=== PATIENT | male | born 1940 | race Caucasian/White ===

== ENCOUNTER 2023-09-08 18:49 | Day surgery (SDC) | payer MEDICARE ==
--- NOTE | 2023-09-08 19:34 | ED Physician Documentation ---
History of Present Illness - Stated complaint Stated Complaint: - Chief complaint Chief Complaint: Abd Pain - History obtained from History obtained from: Patient, Family () - History of Present Illness Timing: Today Pain level max: 0 Pain level now: 0 - Additonal information Additional information: Patient with a history of BPH and urinary retention. Has been on flomax for 2 weeks and has had a catheter in the past. States flew in from [place] today and having trouble urinating. Also had a bloody bowel movement today x1. BRBPR. No abd pain. No fevers. No antibiotic use. States had a colonoscopy in [place] a few years ago which was reportedly normal. Review of Systems Constitutional: denies: Fever, Chills Respiratory: denies: Dyspnea, Cough GI: reports: Bloody / black stool (x1). denies: Nausea, Vomiting, Diarrhea, Hematemesis : denies: Dysuria, Frequency, Hesitancy Skin: denies: Rash Musculoskeletal: denies: Neck pain, Back pain Neurologic: denies: Headache PD PAST MEDICAL HISTORY - Past Medical History Past Medical History: Yes Cardiovascular: Hypertension HEENT: Glaucoma - Past Surgical History Past Surgical History: Yes - Allergies Allergies/Adverse Reactions: Allergies Allergy/AdvReac Type Severity Reaction Status Date / Time No Known Drug Allergies Allergy Verified 09/08/23 19:04 - Social History Does the pt smoke?: No Smoking Status: Never smoker Does the pt drink ETOH?: No Does the pt have substance abuse?: No - Immunizations Immunizations are current?: No PD ED PE NORMAL - Vitals Vital signs reviewed: Yes - General General: Alert and oriented X 3, No acute distress - HEENT HEENT: Moist mucous membranes - Cardiac Cardiac: RRR, Strong equal pulses - Respiratory Respiratory: No respiratory distress, Clear bilaterally - Abdomen Abdomen: Soft, Non tender, Non distended - Male Male : Other (Small amount of bright red blood in the rectal vault.) - Back Back: No CVA TTP, No spinal TTP - Derm Derm: Warm and dry - Neuro Neuro: Alert and oriented X 3 - Psych Psych: Normal mood, Normal affect Results - Vitals Vitals: Vital Signs - 24 hr 09/08/23 09/08/23 18:59 22:59 Temperature 36.9 C 36.2 C L Heart Rate 72 Heart Rate [ 60 Radial] Respiratory 16 12 Rate Blood Pressure 199/63 H Blood Pressure 118/56 L [Left Brachial artery] O2 Saturation 100 98 Oxygen O2 Source Room air - Labs Labs: Laboratory Tests 09/08/23 09/08/23 09/08/23 19:36 19:36 19:36 WBC 11.0 H RBC 4.50 L Hgb 13.2 L Hct 42.5 MCV 94.4 H MCH 29.3 MCHC 31.1 L RDW 14.4 Plt Count 216 MPV 11.8 H Neut # (Auto) 8.9 H Lymph # (Auto) 1.0 L Bon[place] # (Auto) 1.0 Eos # (Auto) 0.0 Baso # (Auto) 0.0 Absolute Nucleated RBC 0.00 Nucleated RBC % 0.0 PT 12.0 INR 1.1 APTT 27.5 Sodium 139 Potassium 3.9 Chloride 104 Carbon Dioxide 27 Anion Gap 8.0 BUN 17 Creatinine 1.0 Estimated GFR (MDRD) 71 L Glucose 123 H Calcium 9.5 Total Bilirubin 1.1 H AST 19 ALT 8 L Alkaline Phosphatase 67 Total Protein 6.8 Albumin 4.4 Globulin 2.4 Albumin/Globulin Ratio 1.8 Lipase 13 Blood Type 09/08/23 19:36 WBC RBC Hgb Hct MCV MCH MCHC RDW Plt Count MPV Neut # (Auto) Lymph # (Auto) [place] # (Auto) Eos # (Auto) Baso # (Auto) Absolute Nucleated RBC Nucleated RBC % PT INR APTT Sodium Potassium Chloride Carbon Dioxide Anion Gap BUN Creatinine Estimated GFR (MDRD) Glucose Calcium Total Bilirubin AST ALT Alkaline Phosphatase Total Protein Albumin Globulin Albumin/Globulin Ratio Lipase Blood Type A POSITIVE PD Medical Decision Making - ED course Complexity details: reviewed results, re-evaluated patient, considered differential, d/w patient, d/w seo consultant ED course: 83-year-old male visiting from [place]. Had bright red blood per rectum x 1 today. No further rectal bleeding. Not on blood thinners. Normal hemoglobin hematocrit. Abdomen is soft, nontender nondistended. He did have urinary retention and a Nuñez catheter was attempted to be placed but was unable to be placed successfully. Attempted multiple times. Discussed with Dr. Black, urology, he came and attempted to place a Nuñez catheter as well but was unable to place the catheter. He will take the patient to the OR for catheter placement. The hematochezia is stable, the patient can return if he worsens further hematochezia or follow-up with his PCP when he returns home. He is hemodynamically stable. Would still recommend a CT scan. Patient transferred to the OR. This document was made in part using voice recognition software. While efforts are made to proofread this document, sound alike and grammatical errors may occur. Departure - Departure Disposition: ED Transfer to [facility] Clinical Impression: Urinary retention, Hematochezia, BRBPR (bright red blood per rectum) Condition: Stable Discharge Date/Time: 09/08/23 22:00
[2023-09-08 19:43] LABS: BASOPHILS % (AUTO) 0.3 %; HCT - HEMATOCRIT 42.5 % (42.0-52.0); HGB - HEMOGLOBIN 13.2 g/dL (14.0-18.0); LYMPHOCYTES % (AUTO) 8.9 %; MEAN CORPUSCULAR HEMOGLOBIN 29.3 pg (27.0-31.0); MEAN CORPUSCULAR HGB CONC 31.1 g/dL (32.0-36.0); MEAN CORPUSCULAR VOLUME 94.4 fL (80.0-94.0); MEAN PLATELET VOLUME 11.8 fL (7.4-11.4); MONOCYTES % (AUTO) 9.5 %; NEUTROPHILS # (AUTO) 8.9 10^3/uL (1.5-6.6); NEUTROPHILS % (AUTO) 81.1 %; PLT - PLATELET COUNT 216 10^3/uL (130-450); RED CELL DISTRIBUTION WIDTH 14.4 % (12.0-15.0)
[2023-09-08 19:53] LABS: PARTIAL THROMBOPLASTIN TIME 27.5 secs (24.9-33.3)
[2023-09-08 19:57] LABS: INR 1.1 (0.8-1.2)
[2023-09-08 20:00] LABS: ALBUMIN 4.4 g/dL (3.2-5.5); ALBUMIN/GLOBULIN RATIO 1.8 (1.0-2.2); BILIRUBIN,TOTAL 1.1 mg/dL (0.2-1.0); CALCIUM 9.5 mg/dL (8.5-10.3); POTASSIUM 3.9 mmol/L (3.5-4.5); TOTAL PROTEIN 6.8 g/dL (6.4-8.9)
[2023-09-08] MEDS ORDERED: LIDOCAINE 2% URO-JET 5 ML SYRINGE UR STA (21:19)
--- NOTE | 2023-09-08 22:00 | CONSULTATION NOTE ---
Referring Provider Name of Referring Provider:: Dr Carpenter Consult Date: 09/08/23 Chief Complaint - Chief Complaint Chief Complaint: Urinary Retention History of Present Illness - Admitted From Admitted From:: Currently in the ER - History Obtained From Records Reviewed: Local records History obtained from: Patient, Exam Limitations: Patient is poor historian, most from - History of Present Illness HPI Comment/Other: Ja is an 83yo M with history of urinary retention about 3 years ago which required a catheter for about 6 months. He was eventually able to void, and the family is unsure if he was on a medication at the time for this, perhaps t amsulosin. He eventually stopped seeing the urologist, and had not been on any prostate meds for years. Two weeks ago he noted some hesitancy of urination in the morning and his PCP started him on tamsulosin. He lives in [place] and has most of his care there. He and his flew here today and noted he could not urinate, though with straining he did have bowel movements and saw bright red blood at least once. Notes state he had a negative colonoscopy 3 years ago. In the ER at [facility] the staff tried multiple catheters, 12f, 14f,16f mostly coude catheters. They noted blood in catheter on the last try and so Urology was consulted. He is a poor historian, though is able to answer pointed questions well. History - Past Medical History Cardiovascular: reports: Hypertension HEENT: reports: Glaucoma - Past Surgical History General: reports: Cholecystectomy (per no issues) Meds/Allgy - Allergies Allergies/Adverse Reactions: Allergies Allergy/AdvReac Type Severity Reaction Status Date / Time No Known Drug Allergies Allergy Verified 09/08/23 19:04 Exam - Vital Signs Vital Signs: Vital Signs x48h Temp Pulse Resp BP Pulse Ox 09/08/23 18:59 36.9 C 72 16 199/63 H 100 - Physical Exam General Appearance: positive: No acute distress Respiratory: positive: Breath sounds nml Cardiovascular: positive: Regular rate & rhythm Abdomen: positive: Other (palpable lower abdominal fullness consistent with distended bladder) Conclusion and Plan - Lab Results Laboratory Results 09/08/23 19:36: Blood Type A POSITIVE 09/08/23 19:36: Sodium 139, Potassium 3.9, Chloride 104, Carbon Dioxide 27, Anion Gap 8.0, BUN 17, Creatinine 1.0, Estimated GFR (MDRD) 71 L, Glucose 123 H, Calcium 9.5, Total Bilirubin 1.1 H, AST 19, ALT 8 L, Alkaline Phosphatase 67, Total Protein 6.8, Albumin 4.4, Globulin 2.4, Albumin/Globulin Ratio 1.8, Lipase 13 09/08/23 19:36: PT 12.0, INR 1.1, APTT 27.5 09/08/23 19:36: WBC 11.0 H, RBC 4.50 L, Hgb 13.2 L, Hct 42.5, MCV 94.4 H, MCH 29.3, MCHC 31.1 L, RDW 14.4, Plt Count 216, MPV 11.8 H, Neut # (Auto) 8.9 H, Lymph # (Auto) 1.0 L, [place] # (Auto) 1.0, Eos # (Auto) 0.0, Baso # (Auto) 0.0, Absolute Nucleated RBC 0.00, Nucleated RBC % 0.0 - Diagnosis Diagnosis: Urinary retention - Consultation Note Consultation Note: 83yo M with likely hx of BPH and retention in the past, now with urinary retention and unable to pass catheter I tried to pass an 18f coude catheter at bedside, but met resistance which I suspect related to false passage Patient NPO since this morning - Plan Plan: Unable to place catheter at bedside. Patient is clinically stable but uncomfortable. I recommend a: cystoscopy, possible catheter placement, possible suprapubic tube in the OR under sedation. We discussed the risks/benefits/alternatives. Specific risk of infection, bleeding, need for additional procedures, pain, dislodgment of catheter, need for chronic catheter, anesthesia risks including: heart attack, stroke, MSK injuries, pulmonary embolism/DVT were discussed. Patient and state full understanding and consent. The signed the form as she is POA. Hopefully home later tonight with followup in [place] with their urologist there. Given BRBPR and atypical presentation, it isn't unreasonable to obtain a CT scan and so I will await these results as well Will send urine sample from OR as well
[2023-09-08] MEDS ORDERED: PROPOFOL 500 MG/50 ML 500 MG/50 ML VIAL ONE (22:11)
[2023-09-08] MEDS ORDERED: fentaNYL 100 MCG/2 ML VIAL ONE (22:12)
[2023-09-08] MEDS ORDERED: LIDOCAINE 2% URO-JET 5 ML SYRINGE UR ONE ×2 (22:18→22:51)
--- NOTE | 2023-09-08 22:23 | ANESTHESIA ---
Pre-Anesthesia VS, & Labs - Diagnosis Diagnosis Urinary retention - Procedure cooney placement under anesthesia, cystoscopy Vital Signs: Temp Pulse Resp BP Pulse Ox O2 Flow Rate 36.9 C 72 16 199/63 H 100 09/08/23 18:59 09/08/23 18:59 09/08/23 18:59 09/08/23 18:59 09/08/23 18:59 Height: 5 ft 9 in Weight (kg): 88.451 kg Body Mass Index: 28.8 BMI Classification: Overweight - NPO >8 hours - Lab Results Current Lab Results: Laboratory Tests 09/08/23 19:36: Blood Type A POSITIVE 09/08/23 19:36: Sodium 139, Potassium 3.9, Chloride 104, Carbon Dioxide 27, Anion Gap 8.0, BUN 17, Creatinine 1.0, Estimated GFR (MDRD) 71 L, Glucose 123 H, Calcium 9.5, Total Bilirubin 1.1 H, AST 19, ALT 8 L, Alkaline Phosphatase 67, Total Protein 6.8, Albumin 4.4, Globulin 2.4, Albumin/Globulin Ratio 1.8, Lipase 13 09/08/23 19:36: PT 12.0, INR 1.1, APTT 27.5 09/08/23 19:36: WBC 11.0 H, RBC 4.50 L, Hgb 13.2 L, Hct 42.5, MCV 94.4 H, MCH 29.3, MCHC 31.1 L, RDW 14.4, Plt Count 216, MPV 11.8 H, Neut # (Auto) 8.9 H, Lymph # (Auto) 1.0 L, [place] # (Auto) 1.0, Eos # (Auto) 0.0, Baso # (Auto) 0.0, Absolute Nucleated RBC 0.00, Nucleated RBC % 0.0 Fish Bones: 09/08/23 19:36 09/08/23 19:36 Home Medications and Allergies Allergies/Adverse Reactions: Allergies Allergy/AdvReac Type Severity Reaction Status Date / Time No Known Drug Allergies Allergy Verified 09/08/23 19:04 Anes History & Medical History - Anesthetic History Anesthesia Complications: reports: No previous complications Family history of Anesthesia Complications: Denies Family history of Malignant Hyperthermia: Denies - Medical History Cardiovascular: reports: Hypertension Musculoskeletal: reports: None Smoking Status: Never smoker Psychosocial: reports: No issues indicated History of Cancer?: No - Surgical History General: reports: Cholecystectomy (per no issues) Exam General: Alert, Oriented x3, Cooperative Dental: WNL Mouth Openin Fingerbreadth Neck Mobility: Normal Mallampati classification: II Respiratory: Lungs clear, Normal breath sounds Cardiovascular: Regular rate Neurological: Normal speech Mental/Cognitive Status: Normal for patient, Confused Cognitive Status: Dementia, Memory impairment Plan Anesthesia Type: MAC, Total IV Consent for Procedure(s) Verified and Reviewed: Yes Code Status: Attempt Resuscitation ASA classification: 2-Mild systemic disease Is this case an emergency?: Yes
[2023-09-08] MEDS ORDERED: MORPHINE 2 MG/ML CARPUJECT IVP PRN (22:24)
[2023-09-08] MEDS ORDERED: fentaNYL 100 MCG/2 ML VIAL IVP PRN (22:24)
[2023-09-08] MEDS ORDERED: METOCLOPRAMIDE 10 MG/2 ML VIAL IVP PRN (22:24)
[2023-09-08] MEDS ORDERED: NALOXONE 0.4 MG/ML VIAL IVP PRN (22:24)
[2023-09-08] MEDS ORDERED: ATROPINE ABBOJECT 1 MG/10 ML SYRINGE IVP PRN (22:24)
[2023-09-08] MEDS ORDERED: HYDROmorphone 0.5 MG/0.5 ML SYRINGE IVP PRN (22:24)
[2023-09-08] MEDS ORDERED: ONDANSETRON 4 MG/2 ML VIAL IVP PRN (22:24)
[2023-09-08] MEDS ORDERED: ePHEDrine 50 MG/ML VIAL IVP PRN (22:24)
[2023-09-08] MEDS ORDERED: ceFAZolin 1 GM VIAL ONE (22:41)
[2023-09-08] MEDS ORDERED: SODIUM CHLORIDE FLUSH 0.9% 10 ML SYRINGE IVP PRN (22:57)
[2023-09-08] MEDS ORDERED: ACETAMINOPHEN 325 MG TABLET PO PRN (22:57)
[2023-09-08] MEDS ORDERED: LACTATED RINGERS 1,000 ML IV SCH (23:00)
--- NOTE | 2023-09-08 23:03 | Discharge Plan ---
Discharge Plan Problem Reviewed?: Yes Disposition: Home, Self Care Diet: Regular Activity Restrictions: Additional Comments (routine catheter care) Shower Restrictions: No Driving Restrictions: No Instruction Topics: Catheter Bag Urinary Empty Clean, Catheter Indwelling Urinary Dc Additional Instructions or Follow Up instructions: You must followup with a urology doctor in your home city within one month If you are still here on [place] you can followup with Dr Black in 2-4 weeks Catheter must stay in place until you see a urology doctor No Smoking: If you smoke, Please STOP! Call for help.
--- NOTE | 2023-09-08 23:03 | OPERATIVE REPORT ---
Operative Report - General Procedure Date: 09/08/23 Planned Procedure: Cystoscopy, catheter placement, possible suprapubic tube Pre-Op Diagnosis: Urinary retention Procedure Performed: cystoscopy, complex cooney placement Post Op Diagnosis: Urinary retention, BPH, false passage - Procedure Note Primary Surgeon: Wayne Anesthesia Provider: PANDA gonzalez Anesthesia Technique: Moderate sedation Pathology: urine culture Estimated Blood Loss (mL): 0 Drain/Tube Type: Other (20f cooney kasaan) Findings: false passage very large prostate diverticula in bladder Complications: none - Other Other Information/Narrative: After informed consent was obtained by the patient and power of attorney general , the patient was brought to the OR and laid in the supine position. At that point and the patient was anesthetized per anesthesia protocols. He was placed in dorsolithotomy position and prepped and draped in usual sterile fashion. A timeout was performed reconfirming the patient and procedure. A flexible cystoscope was advanced past the external sphincter into the prostatic lumen. There was some old blood air in the posterior wall of the prostate with a small defect consistent with a small false passage. The correct orthotopic lumen was identified anteriorly and the cystoscope was advanced through a very large edematous and obstructing prostate into the bladder. The bladder urine looks clear. The bladder was enlarged with multiple diverticula and trabeculations. A sensor wire was placed. A Uro-Jet was placed. Over this wire a 20 [place] kasaan tip catheter was placed with 15 cc in the balloon. A sample of urine was sent for culture. This concluded the procedure the patient tolerated procedure well. [facility] and will follow-up with a [place]rolog[place] 4 [place]
--- NOTE | 2023-09-08 23:11 | ANESTHESIA POST OP EVALUATION ---
Anesthesia Post Eval - Post Anesthesia Eval Vitals: Last Vital Signs Temp 36.9 C 09/08/23 18:59 Pulse 72 09/08/23 18:59 Resp 16 09/08/23 18:59 BP 199/63 H 09/08/23 18:59 Pulse Ox 100 09/08/23 18:59 O2 Flow Rate CV Function Including HR & BP: Stable Pain Control: Satisfactory Nausea & Vomiting: Negative Mental Status: Baseline Respiratory Status: Airway Patent Hydration Status: Satisfactory Anesthesia Complications: None
[2023-09-08 23:18] VITALS: O2SAT 97
[2023-09-09] MEDS ORDERED: SODIUM CHLORIDE FLUSH 0.9% 10 ML SYRINGE IVP SCH (01:00)
[2023-09-09 02:47] VITALS: BP 111/59
== END 2023-09-09 00:50 | disposition home or self-care (01) ==
LOC: ED 18:49 → SDS 21:30 → MS3 23:26 → SDS 09-09 00:50
PROVIDERS: ATTEND Urology
DX: N40.1 Benign prostatic hyperplasia with lower urinary tract symptoms (principal); R33.8 Other retention of urine; N32.3 Diverticulum of bladder; N36.5 Urethral false passage; I10 Essential (primary) hypertension; N32.89 Other specified disorders of bladder
CPT/HCPCS: 36415; 51702; 51703; 80053; 83690; 85025; 85610; 85730; 86900; 86901; 87086; 99284; 99285; A9270